=== PATIENT | female | born 1935 | race Caucasian/White ===

== ENCOUNTER 2017-10-26 08:40 | Emergency (ER) | payer MEDICARE, BC ==
[2017-10-26 12:36] VITALS: BP 133/92
--- NOTE | 2017-10-26 13:20 | CR ---
INDICATION: Cough. CHEST: PA and lateral views of the chest 10/26/2017 were obtained with no comparisons available. The heart appears to be at the upper limits of normal in size. The aorta is tortuous with calcification minimally in the arch. At the right lower lobe posteriorly, there are pleural parenchymal changes, suggesting pneumonia and pleuritis and subsegmental atelectasis. No gross consolidating pneumonia was seen, rather a relatively patchy infiltrate is suggested. Flattening of diaphragm leaves, hyperaeration, and AP diameter prominence are all compatible with COPD. Dextroconcave scoliosis of moderate degree is noted in the lower thoracic spine. A mild degree of demineralization may be present - correlate clinically as to the possibility of osteoporosis. Degenerative changes are noted at the shoulder joints with impingement, most severe on the right. IMPRESSION: 1. Right lower lobe pneumonia, pleuritis, and possible linear atelectasis. 2. COPD. 3. ASHD. 4. Probable osteoporosis. 5. Degenerative changes with impingement right shoulder and to a much lesser extent on the left. MTDD
--- NOTE | 2017-10-26 15:15 | CR ---
INDICATION: No known injury, left hip pain. LEFT HIP: Three images of the left hip with two laterals and an AP revealed appearance suggesting demineralization, which should be correlated clinically. A fracture or dislocation was not identified. No significant appearing degenerative changes were identified at the hip joint. Minimal degenerative changes noted at the sacroiliac joint. IMPRESSION: 1. Question possibility of demineralization, which may be on the basis of osteoporosis - correlate clinically. 2. Minimal degenerative changes sacroiliac joint. 3. Left hip joint appears to be intact. MTDD
--- NOTE | 2017-10-27 12:37 | ER ---
DATE SEEN: 10/26/2017 TIME SEEN: The patient was seen at 0820 hours. HISTORY OF PRESENT ILLNESS: Kizzy is a 82-year-old woman, who lives at home with osteoarthritis, scoliosis, rheumatoid arthritis, decreased hearing, asthma, chronic obstructive lung disease, who experienced the following symptoms: This morning she went to the bathroom. She was sitting on the toilet seat, and noted when she moved, she felt pain in her left hip. She was able to walk and transferred to the hospital for further evaluation. She did not fall. No history of trauma. CURRENT MEDICATIONS: 1. Tramadol for pain. 2. Hydralazine for hypertension. 3. Atorvastatin for dyslipidemia. 4. Evista(Raloxifene)for arthritis. 5. Montelukast, albuterol, and Advair for her asthma. 6. Cyanocobalamin B12 for possible anemia secondary to B12 deficiency. 7. Vitamin D. 8. Calcium carbonate. 9. Aspirin. ALLERGIES: None. REVIEW OF SYSTEMS: Negative except for slight decreased mobility with her arthritis. She does not have dentures. Denies shortness of breath or cough, or chest pain, irregular heartbeat, syncope, near syncope, or falls. No palpitation. Denies abdominal discomfort, blood in the stool, black tarry stool, change of bowels, and abdominal pain. MUSCULOSKELETAL: Has arthritis - it involves her hands. She has bilateral total knee arthroplasties. Has mild hip discomfort and uses a cane to ambulate. PHYSIATRIC: Negative. Denies depression. NEUROLOGIC: Negative. No stroke or seizures. PHYSICAL EXAMINATION: VITAL SIGNS: Blood pressure 163/68, heart rate 57, respirations 18, oxygen saturation 98%, and temperature is 36.8 degrees centigrade, 83.91 kilos. BMI 30.8 kg/m2. GENERAL: A very pleasant woman, who is appropriately dressed/well dressed and conversant and not in pain. HEENT: PERRLA intact. Pharynx without abnormality. NECK: No bruits. No masses. No adenopathy. No abnormality or limitation of range of motion of neck. HEART: S1, S2. No irregular rate and rhythm. LUNGS: Crackles at the bases of her lungs, posteriorly bilaterally. No rib/chest wall discomfort. No spinous process tenderness in the cervical, thoracic, or lumbar spine. No paraspinal muscle discomfort. ABDOMEN: Soft. No guarding. No abdominal discomfort. Bowel sounds normal. PELVIC: Not performed. EXTREMITIES: Lower extremities, range of motion of the left hip, has decreased range of motion. However, no crepitus, no external rotation. The knee is appropriately in flexion and extension. Bilateral knee arthroplasty scars noted. No tenderness to knees. No joint line tenderness. Ankles without abnormality. No pedal edema. Dorsalis pedis intact. Radial pulse is intact. NEUROLOGIC: Deep tendon reflexes in upper and lower extremities 1+ decreased and absent in knees. Ankles intact, but hypoactive ankles. DIAGNOSTIC STUDIES: X-ray reveals flattening of the diaphragms and some scarring especially the lateral view demonstrates posterior lung fibrosis. No airspace disease. No infiltrate. Mild fibrosis noted. Mild increased lucency of the lung. X-ray of the hip is without fracture. ASSESSMENT: 1. Spontaneous left hip pain secondary to arthritis. No fracture. No suggestion of a stress fracture. The patient was able to walk without difficulty. 2. Obesity. 3. Rheumatoid arthritis with thickening of the second and third MP joints with swelling and also swelling of fingers, mild dactylitis. 4. The patient is a . 5. Minimal support system. 6. Chronic obstructive lung disease without infiltrate, but has mild fibrosis. 7. Bilateral total knee arthroplasty. 8. Dyslipidemia. 9. Hypertension. 10.No allergies. PLAN: The patient to add ibuprofen to her arthritis list of medicines she could use, as that is known to be more effective for arthritis than the Tylenol. Continue use of cane. Increase her activity. She needs to increase her walking as her insurance policy against having to go to [facility], also taught exercises to strengthen her legs and to increase circulation in legs and her cardiovascular conditioning. Follow up with her doctor in a week, earlier if worse. No evidence for stress fracture. /[id number] JENNIFER/EUGENE SHULTZ
== END 2017-10-26 10:36 | disposition home or self-care (01) ==
LOC: FB.ED 08:40
DX: M16.12 Unilateral primary osteoarthritis, left hip (principal); M06.9 Rheumatoid arthritis, unspecified; L08.9 Local infection of the skin and subcutaneous tissue, unspecified; J44.9 Chronic obstructive pulmonary disease, unspecified; I10 Essential (primary) hypertension; E78.5 Hyperlipidemia, unspecified; E66.9 Obesity, unspecified; Z79.82 Long term (current) use of aspirin; Z96.651 Presence of right artificial knee joint; Z96.652 Presence of left artificial knee joint
CPT/HCPCS: 36415; 71046; 73502-LT; 80053; 83880; 85025; 99284

== ENCOUNTER 2022-06-17 16:15 | Emergency (ER) | payer BC, MEDICARE ==
[2022-06-17] MEDS ORDERED: Sodium Chloride 0.9% 10 ML Syringe FLUSH PRN (16:46)
[2022-06-17 18:04] LABS: ESTIMATED GFR 33 mL/min (>60)
[2022-06-17 21:31] VITALS: BP 124/54; PULSE 61
== END 2022-06-17 20:45 | disposition home or self-care (01) ==
LOC: FB.ED 16:15
DX: I11.0 Hypertensive heart disease with heart failure (principal); I50.9 Heart failure, unspecified; J45.909 Unspecified asthma, uncomplicated; E78.00 Pure hypercholesterolemia, unspecified; E66.9 Obesity, unspecified; Z79.899 Other long term (current) drug therapy; Z79.82 Long term (current) use of aspirin
CPT/HCPCS: 36415; 71045; 80053; 83880; 84484; 85025; 85610; 85730; 93005; 99285